=== PATIENT | female | born 1975 | race Caucasian/White ===

== ENCOUNTER 2020-11-10 04:26 | Emergency (ER) | payer OTHER ==
[~2020-11-10 04:26] MED LIST: ASPIRIN81 MG PO; CELEXA10 MG PO; COREG3.125 MG PO; EFFIENT10 MG PO; IMDUR 30MG TABL30 MG PO; LANTUS100 UNIT/1 SC; LIPITOR80 MG PO; NOVOLOG100 UNIT/1 SC; RANEXA1000 MG PO; ZESTRIL20 MG PO; ZESTRIL5 MG PO
== END 2020-11-10 05:15 | disposition home or self-care (01) ==
LOC: FER 04:26
DX: S90.821A Blister (nonthermal), right foot, initial encounter (principal); R60.0 Localized edema; I50.9 Heart failure, unspecified; E11.9 Type 2 diabetes mellitus without complications; Z98.890 Other specified postprocedural states; Z88.1 Allergy status to other antibiotic agents; Z88.5 Allergy status to narcotic agent; X58.XXXA Exposure to other specified factors, initial encounter
CPT/HCPCS: 99282